=== PATIENT | male | born 1960 | race Caucasian/White ===

== ENCOUNTER 2018-01-04 09:28 | Emergency (ER) | payer OTHER ==
[~2018-01-04] VITALS: Ht 185.4 cm; Wt 75.3 kg
[~2018-01-04 09:28] MED LIST: AMOXICILLIN500 MG PO; ASPIRIN81 M1 PO; AUGMENTIN875 MG PO; BENZTROPINE MESY1 MG PO; Cordarone, Pacerone PO; DEPAKOTE PO; DESYREL 150 MG150 MG PO; DILANTIN INFATA50 MG PO; DILANTIN100 MG PO; DIVALPROEX SOD250 MG PO; DIVALPROEX SOD500 MG PO; Depakene PO; KEPPRA500 MG PO; KLONOPIN2 MG PO; LEVETIRACETAM500 MG PO; LEVOTHYROXINE100 MCG PO; Levaquin PO; Levothroid,Synthroid PO; MOTRIN400 MG PO; OMEPRAZOLE20 MG PO; PRILOSEC20 MG PO; Parlodel PO; RISPERIDONE3 MG PO; RISPERIDONE4 MG PO; SEROQUEL200 MG PO; SEROquel PO; SYNTHROID125 MCG PO; TRAZODONE HCL150 MG PO; ZITHROMAX250 MG PO; ZYRTEC10 M2 PO; ZYRTEC10 M3 PO
[2018-01-04 10:39] LABS: BASOPHIL (%) 0.1 % (0-1); EOSINOPHIL (%) 0.1 % (0-5); HEMATOCRIT 40.6 % (38.0-50.0); HEMOGLOBIN 13.7 G/DL (12.5-16.6); IMMATURE GRANULOCYTE (%) 0.5 % (0.0-0.7); LYMPHOCYTE (%) 10.3 % (15-42); LYMPHOCYTE COUNT 0.9 K/uL (1.0-2.8); MCH 29.1 PG (29.0-34.0); MCHC 33.7 G/DL (30.0-36.0); MCV 86.4 FL (86-99); MONOCYTE COUNT 0.6 K/uL (0-0.8); NEUTROPHIL COUNT 7.2 K/uL (1.8-6.4); PLATELET COUNT 126 K/uL (156-360); RBC DIS.WIDTH-CV 13.7 % (11.8-14.6); RBC DIS.WIDTH-SD 44.3 % (39-53); WHITE BLOOD COUNT 8.7 K/uL (4.1-10.2)
[2018-01-04 11:00] LABS: CHLORIDE 103 mEq/L (99-109); POTASSIUM 4.4 mEq/L (3.7-5.4); SODIUM 137 mEq/L (136-147)
[2018-01-04 11:06] LABS: CREATININE 1.1 mg/dL (0.6-1.3); GFR ESTIMATE (CALCULATED) > 59 mL/min/ (58.99-99999)
[2018-01-04 11:07] LABS: UREA NITROGEN (BUN) 25 mg/dL (9-23)
[2018-01-04 11:12] LABS: GLUCOSE 112 mg/dL (70-99)
[2018-01-04 12:39] LABS: VALPROIC ACID (DEPAKOTE) 92.8 MCG/ML (50-100)
[2018-01-04 14:52] VITALS: BP 93/67
== END 2018-01-04 15:02 | disposition home or self-care (01) ==
LOC: EME 09:28
PROVIDERS: Emergency Medicine
DX: R42 Dizziness and giddiness (principal); F79 Unspecified intellectual disabilities; K21.9 Gastro-esophageal reflux disease without esophagitis; R56.9 Unspecified convulsions; E22.2 Syndrome of inappropriate secretion of antidiuretic hormone; H52.10 Myopia, unspecified eye; Z79.82 Long term (current) use of aspirin
CPT/HCPCS: 70450; 70551; 80048; 80164; 80185; 85025; 99281; 99285